=== PATIENT | female | born 1940 | race Caucasian/White ===

== ENCOUNTER → 2017-01-28 | Outpatient (CLI) | payer OTHER ==
[~2017-01-28] MED LIST: BUTALB-ACETAMI1 EAC1 PO; CIPRO PO; FLAGYL PO; LISINOPRIL-HCTZ1 T14 PO; LORAZEPAM1 MG PO; LORTAB 10-5001 EACH; PEPCID PO; SIMVASTATIN20 MG PO; ULTRAM PO
--- NOTE | ~2017-01-28 | CR63 ---
[facility] A Service of [facility] & [facility] RADIOLOGY TEXT RESULTS PATIENT: ANISHA MURILLO LOCATION: [facility] : 38 UNIT #: [id number] AGE: [address]: Nitesh Estrada MD SEX: F ORDER DR: [id number] [facility] [address] [place], [place] [address] [id number] O MR#: [id number] Acc #: [id number] NAME: ANISHA MURILLO : 1940 SEX: F STUDY DATE/TIME: 01/28/2017 10:55 UNIT: [facility] ROOM: STUDY DESCRIPTION: CR Chest 2 View Attending Physician: Nitesh Estrada M.D. Referring Physician: Nitesh Estrada M.D. Ordering Physician: Nitesh Estrada M.D. Primary Care Physician: Arcelia Waller M.D. MEDICAL IMAGING REPORT This report is preliminary unless electronic signature is present EXAM PA and lateral chest radiograph INDICATIONS Preoperative examination prior to right knee surgery. Patient has a history of anemia and hyperlipidemia. COMPARISON 12/20/2012 FINDINGS Cardiomediastinal silhouette is unchanged when compared to the prior examination. No pneumothorax, pleural effusion or acute infiltrate is seen. There is some eventration of the right hemidiaphragm. There is some thoracic scoliosis with convexity to the left. No aggressive osseous abnormalities are seen. IMPRESSION No acute disease. Dictated by... Keyonna Hadley M.D. THIS IS AN ELECTRONICALLY VERIFIED REPORT Keyonna Haldey M.D. at 01/28/2017 6:30 PM AFF/to TD: 01/28/2017 13:49 JOB #: [id number] MEDICAL IMAGING REPORT Page 1 of 1 COPY
--- NOTE | ~2017-01-28 | EKG ---
PATIENT: ANISHA MURILLO UNIT #: [id number] Ventricular Rate: 71 BPM Atrial Rate: 71 BPM P-R Interval: 132 ms QRS Duration: 82 ms Q-T Interval: 442 ms QTC Calculation(Bezet): 480 ms P [place]: 83 degrees Calculated R [place]: 71 degrees Calculated T [place]: 29 degrees Diagnosis Line: Sinus rhythm with occasional Premature ventricular Diagnosis Line: complexes Diagnosis Line: Otherwise normal ECG Diagnosis Line: When compared with ECG of 20-DEC-2012 19:43, Diagnosis Line: Premature ventricular complexes are now Present Diagnosis Line: Confirmed by KRIS ADAMS MD ([id number]) on 01/29/2017 Diagnosis Line: 7:03:02 PM INTERPRETING MD: BRYAN DOWNS
[2017-01-28 10:53] LABS: HEMATOCRIT 39.3 % (35.0-45.0); MEAN CELL VOLUME 95.3 FL (83-96); MEAN CORPUSCULAR HEMOGLOBIN 31.6 PG (28-34); MEAN CORPUSCULAR HGB CONC 33.1 g/dL (30-36); MEAN PLATELET VOLUME 8.7 FL (6.5-11.5); RED BLOOD COUNT 4.12 X10e (3.90-5.30); RED CELL DISTRIBUTION WIDTH 13.2 % (11.0-15.5)
[2017-01-28 10:56] LABS: URINE APPEARANCE CLEAR; URINE BILIRUBIN NEG (NEG); URINE BLOOD NEG (NEG); URINE COLOR YELLOW; URINE GLUCOSE NEG (NEG); URINE KETONE NEG (NEG); URINE LEUKOCYTE ESTERASE NEG (NEG); URINE NITRATE NEG (NEG); URINE PH 5.5 (5-8); URINE PROTEIN NEG (NEG); URINE UROBILINOGEN 0.2 MG/DL (NEG)
[2017-01-28 11:02] LABS: CULTURE INDICATED? NO; URINE SOURCE CLEAN CATCH
[2017-01-28 11:12] LABS: CALCIUM SERUM 9.7 mg/dL (8.4-10.2); GLOM FILT RATE Estimated 54.3 mL/min (>60); POTASSIUM 4.1 mmol/L (3.5-5.1)
== END | disposition home or self-care (01) ==
LOC: CLAB 10:13
PROVIDERS: Orthopaedic Surgery
DX: Z01.818 Encounter for other preprocedural examination (principal); S83.241A Other tear of medial meniscus, current injury, right knee, initial encounter
CPT/HCPCS: 36415; 71020; 80048; 81003; 85027; 93005